=== PATIENT | male | born 1995 | race Caucasian/White ===

== ENCOUNTER 2018-08-10 16:18 | Emergency (ER) | payer BC ==
[~2018-08-10] VITALS: Ht 180.3 cm; Wt 86.2 kg
--- OUTSIDE RECORDS SUMMARY | 2018-08-10 16:20 | XMS REPORT | Clinical Summary ---
Author Author LILY [facility] HospitaluberMetrics Technologies GmbHWillapa Harbor Hospital Organization [facility] Address Unknown Phone Unavailable Care Team Providers Care Ticket Collector Name Role Phone Sharpless PCP Allergies No Known Allergies Medications End Date Status Medication Sig Dispensed Refills Start Date Active adalimumab 40 mg/0.4 mL Inject 40 mg 0 PnKtIndications: Crohn's subcutaneousl disease y every 14 (fourteen) days. Active Problems Problem Noted Date Gastroenteritis 07/21/2018 Appendiceal abscess s/p laparoscopic appendectomy (11/25) 11/25/2016 Encounters Care Team Description Date Type Specialty Pauline Brooks MD Jarrouge, Elie G., MD Gastroenteritis; Crohn's disease with complication, unspecified gastrointestinal tract location (HCC) 07/21/2018 Hospital Oncology - Encounter 07/22/2018 07/21/2018 Travel Daisy Lechuga Crohn's disease of both small and lg int w oth complication (HCC); Ileitis; Intestinal malabsorption, unspecified type; Medication monitoring encounter; Encounter for imaging to assess osteopenia; Hx of steroid therapy 04/06/2018 Orders Only Computed Tomography Iqra Moreno NP Crohn's disease of both small and lg int w oth complication (HCC) (Primary Dx); Ileitis; Intestinal malabsorption, unspecified type; Medication monitoring encounter; Encounter for imaging to assess osteopenia; Hx of steroid therapy 04/06/2018 Outside Orders Central Scheduling after 08/09/2017 Social History Date Tobacco Use Types Packs/Day Years Used Never Smoker Smokeless Tobacco: Never Used Alcohol Use Drinks/Week oz/Week Comments No Sex Assigned at Date Recorded Not on file Industry Job Start Date Occupation Not on file Not on file Not on file Travel End Travel History Travel Start No recent travel history available. Last Filed Vital Signs Time Taken Vital Sign Reading 07/22/2018 12:00 PM CDT Blood Pressure 146/66 07/22/2018 12:00 PM CDT Pulse 60 07/22/2018 12:00 PM CDT Temperature 36.8 C (98.3 F) 07/22/2018 12:00 PM CDT Respiratory Rate 18 07/22/2018 12:00 PM CDT Oxygen Saturation 99% - Inhaled Oxygen - Concentration 07/21/2018 2:00 PM CDT Weight 87.2 kg (192 lb 3.9 oz) 07/21/2018 2:00 PM CDT Height 180.3 cm (5' 11") 07/21/2018 2:00 PM CDT Body Mass Index 26.81 Plan of Treatment Not on file Procedures Comments Procedure Name Priority Date/Time Associated Diagnosis CBC W/PLT COUNT & AUTO Routine 07/22/2018 DIFFERENTIAL 3:49 AM CDT C-REACTIVE PROTEIN Routine 07/22/2018 3:49 AM CDT MAGNESIUM Routine 07/22/2018 3:49 AM CDT COMPREHENSIVE METABOLIC Routine 07/22/2018 PANEL 3:49 AM CDT CBC W/PLT COUNT & AUTO Routine 07/22/2018 DIFFERENTIAL 3:49 AM CDT STOOL PATH CHARGE Routine 07/21/2018 10:23 PM CDT SHIGA TOXIN SCREEN Routine 07/21/2018 10:23 PM CDT C. 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 [address] [place] [address] [facility] * CBC with platelet count + automated diff (07/22/2018 3:49 AM CDT) WBC 6.4 3.5 - 10.5 K/L [facility] RBC 4.16 (L) 4.63 - 6.08 M/L [facility] Hemoglobin 12.6 (L) 13.7 - 17.5 GM/DL [facility] Hematocrit 38.0 (L) 40.1 - 51.0 % [facility] MCV 91.3 79.0 - 92.2 fL [facility] MCH 30.3 25.7 - 32.2 pg [facility] MCHC 33.2 32.3 - 36.5 GM/DL [facility] RDW 11.9 11.6 - 14.4 % [facility] Platelets 206 150 - 450 K/CU MM [facility] MPV 9.8 9.4 - 12.4 fL [facility] nRBC 0 0 - 0 /100 WBC [facility] % Neutros 63 % [facility] % Lymphs 19 % [facility] % Monos 12 % [facility] % Eos 6 % [facility] % Baso 1 % [facility] # Neutros 4.01 1.78 - 5.38 K/L [facility] # Lymphs 1.24 (L) 1.32 - 3.57 K/L [facility] # Monos 0.74 0.30 - 0.82 K/L [facility] # Eos 0.35 0.04 - 0.54 K/L [facility] # Baso 0.03 0.01 - 0.08 K/L [facility] Immature 1 0 - 1 % [facility] Granulocytes-Relative [facility] Specimen Blood Performing Organization Address City/State/[place] [address] [phone] [place] [address] * Magnesium (07/22/2018 3:49 AM CDT) Magnesium 1.7 1.6 - 2.6 mg/dL [facility] Specimen Blood Performing Organization Address City/[facility]/[place] [address] [phone] [place] [address] * Comprehensive metabolic panel (07/22/2018 3:49 AM CDT) Protein, Total 5.9 (L) 6.0 - 8.3 gm/dL [facility] Albumin 3.5 3.5 - 5.0 g/dL [facility] Alkaline Phosphatase 46 40 - 150 U/L [facility] Total Bilirubin 1.8 (H) 0.2 - 1.2 mg/dL [facility] Sodium 139 136 - 145 meq/L [facility] Potassium 3.9 3.5 - 5.1 meq/L [facility] Chloride 107 98 - 107 meq/L [facility] CO2 27 22 - 29 meq/L [facility] BUN 12 7 - 21 mg/dL [facility] Creatinine 0.80 0.57 - 1.25 mg/dL [facility] Glucose 89 70 - 105 mg/dL [facility] Calcium 8.5 8.4 - 10.2 mg/dL [facility] AST 21 5 - 34 U/L [facility] ALT 28 6 - 55 U/L [facility] EGFR 121Comment: ESTIMATED GFR IS mL/min/1.73 sq m [facility] NOT ACCURATE CREATININE [facility] CLEARANCE IN PREDICTING GLOMERULAR FILTRATION RATE. ESTIMATED GFR IS NOT APPLICABLE FOR DIALYSIS PATIENTS. Specimen Blood Performing Organization Address City/[facility]/Zipcode Phone Number [address] * Clostridium difficile GDH Toxin (07/21/2018 10:23 PM CDT) C. Difficle Toxin Negative Negative [facility] C. Difficile GDH Antigen NegativeComment: No indication Negative [facility] of Clostridium difficile [facility] infection and no colonization. Discontinue enteric isolation and therapy. Specimen Stool Narrative Performed At Testing performed by [employer] Rapid Cassette Assay.For GDH, published [facility] sensitivity of the assay is 98.7% compared to cytotoxicity testing.For Toxin [facility] AB, published sensitivity is 87.8% and specificity 99.4% compared to cytotoxicity testing. Verification of kit performance was done by the [facility] Microbiology Lab prior to clinical use. Performing Organization Address City/[facility] Mexicocode Phone Number [place] [phone] [place] [address] * STOOL PATH CHARGE (07/21/2018 10:23 PM CDT) Pathogen exam charged Done [facility] Specimen Stool Performing Organization Address City/[facility]/Zipcode Phone Number [address] [address] [phone] [place] [address] * Shiga Toxin Screen (07/21/2018 10:23 PM CDT) Shiga toxin 1 Not detected Not detected [facility] Shiga toxin 2 Not detected Not detected [facility] Specimen Stool Performing Organization Address City/[facility]/Zipcode Phone Number [facility] [address] [place] [address] [facility] * Stool culture + Shiga toxin (07/21/2018 10:23 PM CDT) Result No Salmonella, Shigella or [facility] Campylobacter isolated [facility] Specimen Stool Performing Organization Address City/State/Zipcode Phone Number [facility] [address] [place], [place] [phone] [facility] * XR DXA Bone Density Study (04/06/2018 11:35 AM TELECOMMUNICATOR) Specimen Narrative Performed At FINAL REPORT GE RIS EXAM:BONE MINERAL DENSITY HISTORY:Bone mineralization evaluation COMPARISON:None DISCUSSION: Evaluation of the left hip and lumbar spine was performed utilizing DEXA Hologic bone densitometer. The study is technically adequate. Left hip femoral neck bone mineral density:0.84 g/cm2, T-score is not reported, Z-score is -0.7. Left hip total bone mineral density:0.86 g/cm2, T-score is not reported, Z-score is -1.1. Lumbar spine total bone mineral density:1.04 gm/cm2, T-score is not reported, Z-score is -0.2. Impression: Decreased bone mineralization compared to age-matched controls standard deviation, however not reaching significance (-2) Signed: Estuardo Menendez MD Report Verified Date/Time:04/07/2018 12:26:02 Reading Location: [place] [address] Procedure Note Interface, External Ris In - 04/07/2018 12:28 PM TELECOMMUNICATOR FINAL REPORT EXAM: BONE MINERAL DENSITY HISTORY: Bone mineralization evaluation COMPARISON: None DISCUSSION: Evaluation of the left hip and lumbar spine was performed utilizing DEXA Hologic bone densitometer. The study is technically adequate. Left hip femoral neck bone mineral density: 0.84 g/cm2, T-score is not reported, Z-score is -0.7. Left hip total bone mineral density: 0.86 g/cm2, T-score is not reported, Z-score is -1.1. Lumbar spine total bone mineral density: 1.04 gm/cm2, T-score is not reported, Z-score is -0.2. Impression: Decreased bone mineralization compared to age-matched controls standard deviation, however not reaching significance (-2) Signed: Estuardo Menendez MD Report Verified Date/Time: 04/07/2018 12:26:02 Reading Location: [facility] Reading Room [address] [place] [address] Performing Organization Address City/State/Zipcode Phone Number GE RIS after 08/09/2017 Insurance Payer Benefit Subscriber ID Type Phone Address Plan / Group [employer]BS OS xxxxxxxxxxxx PPO [phone] [address] POS/PPO/[place] [address] O Advance Directives For more information, please contact: [facility] [address] [place] [address] Date Inactivated Comments Code Status Date Activated 07/22/2018 5:13 PM Full Code 07/21/2018 3:14 PM This code status was determined by: Patient 11/29/2016 2:00 PM Full Code 11/25/2016 3:21 AM This code status was determined by: Patient
[2018-08-10] MEDS ORDERED: KETOROLAC TROMETHAMINE 30 MG/ML VIAL IM ONE (16:58)
== END 2018-08-10 17:28 | disposition home or self-care (01) ==
LOC: FSED 16:18
DX: M54.5 Low back pain (principal); S39.012A Strain of muscle, fascia and tendon of lower back, initial encounter; K50.90 Crohn's disease, unspecified, without complications
CPT/HCPCS: 99282; J1885